=== PATIENT | female | born 1935 | race Caucasian/White ===

== ENCOUNTER 2021-04-04 11:22 | Emergency (ER) | payer MEDICARE, BC ==
[~2021-04-04] VITALS: Ht 15.2 cm; Wt 86.4 kg
[2021-04-04 11:39] LABS: BASO % 0.6 % (0.0-2.0); EOS # 0.5 K/mm3 (0.0-0.7); EOS % 7.2 % (0-4.0); GRAN % 55.9 % (42.2-75.2); HEMATOCRIT 38.6 % (37.0-47.0); HEMOGLOBIN 12.6 g/dl (12.5-16.0); LYMPH # 1.9 K/mm3 (1.2-3.4); LYMPH % 26.4 % (20.0-51.0); MEAN CELL VOLUME 93 fl (80.0-100.0); MEAN CORPUSCULAR HEMOGLOBIN 30 pg (27.0-31.0); MEAN CORPUSCULAR HGB CONC 33 g/dl (33.0-37.0); MEAN PLATELET VOLUME 9.8 fl (7.4-10.4); MONO # 0.7 K/mm3 (0.1-0.6); MONO % 9.3 % (1.7-9.3); PLATELET COUNT 200 K/mm3 (130-400); RED BLOOD COUNT 4.16 M/mm3 (4.10-5.30); REDCELL DISTRIBUTION WIDTH-CV 12.7 % (11.5-14.5)
[2021-04-04 11:45] LABS: INR 1.1 (0.8-3.0)
[2021-04-04 11:47] VITALS: TEMP 98
[2021-04-04 11:47] LABS: PARTIAL THROMBOPLASTIN TIME 26.8 SECONDS (26.0-37.0)
[2021-04-04 12:01] LABS: ALANINE AMINOTRANSFERASE 13 U/L (0-55); ALBUMIN 3.6 gm/dL (3.4-4.8); ALKALINE PHOSPHATASE 61 U/L (0-750); ANION GAP 7 mmol/L (7-16); AST,SGOT 20 U/L (5-34); BILIRUBIN,TOTAL 0.5 mg/dL (0.2-1.2); BLOOD UREA NITROGEN 11 mg/dL (10-20); CALCIUM 9.3 mg/dL (8.4-10.2); CARBON DIOXIDE 21 mmol/L (23-31); CHLORIDE 106 mmol/L (98-107); CREATININE, serum 1.14 mg/dL (0.57-1.11); GLUCOSE 104 mg/dL (70-99); POTASSIUM 4.4 mmol/L (3.5-4.5); SODIUM 134 mmol/L (136-145); TOTAL PROTEIN 6.8 gm/dL (6.2-8.1)
[2021-04-04] MEDS ORDERED: ASPIRIN 81M81 MG/TA2 PO (12:03)
[2021-04-04] MEDS ORDERED: PEPCID 20MG TAB20 MG PO (12:04)
[2021-04-04] MEDS ORDERED: LIPITOR 10MG10 MG PO (12:04)
[2021-04-04] MEDS ORDERED: TRANDATE 100MG100 MG PO ×2 (12:07)
[2021-04-04] MEDS ORDERED: PROTONIX 40MG T40 MG PO (12:08)
[2021-04-04] MEDS ORDERED: COZAAR100 MG PO (12:08)
[2021-04-04 12:32] LABS: TROPONIN-I < 0.010 ng/mL (0.00-0.033)
[2021-04-04 13:46] VITALS: BP 170/89; PULSE 56
== END 2021-04-04 13:57 | disposition home or self-care (01) ==
LOC: COL.ER 11:22
PROVIDERS: Family Medicine
DX: R41.82 Altered mental status, unspecified (principal); Z86.73 Personal history of transient ischemic attack (TIA), and cerebral infarction without residual deficits; Z79.82 Long term (current) use of aspirin

== ENCOUNTER → 2021-04-04 | Emergency (ER) | payer MEDICARE, BC ==
[~2021-04-04] MED LIST: ASPIRIN 81M81 MG/TA2 PO; COZAAR100 MG PO; LIPITOR 10MG10 MG PO; PEPCID 20MG TAB20 MG PO; PROTONIX 40MG T40 MG PO; TRANDATE 100MG100 MG PO
== END ==
LOC: COL.ER 11:14
DX: R69 Illness, unspecified (principal)

== ENCOUNTER 2021-10-16 07:11 | Day surgery (SDC) | payer MEDICARE, BC ==
[~2021-10-16] VITALS: Ht 167.6 cm; Wt 64.5 kg
[2021-10-16] VITALS (11 sets, daily range): BP systolic 111–149; BP diastolic 54–96; PULSE 59–68; TEMP 97.6–98.4
[~2021-10-16 07:11] MED LIST changes: -LIPITOR 10MG10 MG PO; +LIPITOR 40MG TA40 MG PO
[2021-10-16] MEDS ORDERED: DIOVAN 80MG80 MG PO (08:03)
[2021-10-16] MEDS ORDERED: PLAVIX 75MG TAB75 MG PO (08:05)
[2021-10-16 08:06] LABS: BASO # 0.1 K/mm3 (0.0-0.2); BASO % 1.1 % (0.0-2.0); EOS # 0.5 K/mm3 (0.0-0.7); EOS % 6.4 % (0.0-4.0); GRAN # 4.3 K/mm3 (1.4-6.5); GRAN % 59.1 % (42.2-75.2); HEMOGLOBIN 12.4 g/dl (12.5-16.0); LYMPH # 1.7 K/mm3 (1.2-3.4); MEAN CELL VOLUME 88 fl (80.0-100.0); MEAN CORPUSCULAR HEMOGLOBIN 30 pg (27-31); MEAN CORPUSCULAR HGB CONC 34 g/dl (33.0-37.0); MEAN PLATELET VOLUME 9.2 fl (7.4-10.4); MONO # 0.6 K/mm3 (0.1-0.6); MONO % 8.7 % (1.7-9.3); PLATELET COUNT 220 K/mm3 (130-400); RED BLOOD COUNT 4.17 M/mm3 (4.10-5.30); REDCELL DISTRIBUTION WIDTH-CV 13.7 % (11.5-14.5)
[2021-10-16] MEDS ORDERED: DIFLUCAN 100MG100 MG PO (08:06)
[2021-10-16 08:07] LABS: HEMATOCRIT 36.8 % (37.0-47.0)
[2021-10-16] MEDS ORDERED: MYCOSTATIN100000 U/1 TP (08:08)
--- NOTE | 2021-10-16 08:10 | NUR ---
SEE MERGE FOR ALL MEDICATION ADMINISTRATION TIMES/DOSAGES AND INTRA/POST PROCEDURE SEDATION ASSESSMENTS. PRE PROCEDURE ASSESSMENT COMPLETED IN [facility]. SEE MERGE FOR INITIAL/BASELINE ETC02 READING.
[2021-10-16 08:17] LABS: INR 1.1 (0.8-3.0); PROTHROMBIN TIME 11.8 SECONDS (9.7-12.8)
[2021-10-16 08:19] LABS: CALCIUM 9.5 mg/dL (8.4-10.2); CREATININE, serum 0.99 mg/dL (0.57-1.11); POTASSIUM 4.3 mmol/L (3.5-4.5)
--- NOTE | 2021-10-16 11:55 | NUR ---
Pt taken by wheelchair to rm 319 with belongings, daughter accomanies. She is settled into room, call light in reach. Phone report was given to FARIHA Rhoades.
--- NOTE | 2021-10-16 12:20 | NUR ---
PT ADMITTED TO UNIT. ADMISSION INTAKE AND ASSESSMENT COMPLETED. ORIENTED PT TO ROOM, FAMILY AT BEDSIDE. PLACED ON VITALS, VSS. REPORTS MILD PAIN TO L SHOULDER. DRESSING SITES X2 C/D/I. WILL CONTINUE TO MONITOR.
--- NOTE | 2021-10-16 23:41 | NUR ---
ALERT AND OX4 DENIES SOA, CHEST PAIN OR DIZZY. SLING TO LEFT ARM. LOOP RECORDER AND PACEMAKER PROCEDURE TODAY; TOLERATED WELL. ICE PACK TO SITE. TELE-PACED. SCD FOR VTE. MILD TENDERNESS AND BRUSING NOTED AT SITE. REQ MED TO HELP HER SLEEP TONIGHT, GIVEN. CALL LIGHT WI REACH.
[2021-10-17 00:11] VITALS: BP 106/49; PULSE 66; TEMP 97.4
--- NOTE | 2021-10-17 03:41 | NUR ---
PT GIVEN TYL FOR TENDERNESS TO LEFT CHEST/SHOULDER. SLING IN PLACE. NEEDS MET. ANTICPATES DC TODAY.
[2021-10-17 03:58] VITALS: BP 131/63; PULSE 59; TEMP 97.9
[2021-10-17 06:00] LABS: BASO # 0.1 K/mm3 (0.0-0.2); BASO % 0.7 % (0.0-2.0); EOS # 0.5 K/mm3 (0.0-0.7); EOS % 6.7 % (0.0-4.0); GRAN # 4.8 K/mm3 (1.4-6.5); GRAN % 66.2 % (42.2-75.2); HEMOGLOBIN 11.8 g/dl (12.5-16.0); LYMPH # 1.2 K/mm3 (1.2-3.4); LYMPH % 16.9 % (20.0-51.0); MEAN CELL VOLUME 90 fl (80.0-100.0); MEAN CORPUSCULAR HEMOGLOBIN 30 pg (27-31); MEAN CORPUSCULAR HGB CONC 33 g/dl (33.0-37.0); MEAN PLATELET VOLUME 9.7 fl (7.4-10.4); MONO # 0.7 K/mm3 (0.1-0.6); MONO % 9.2 % (1.7-9.3); PLATELET COUNT 182 K/mm3 (130-400); RED BLOOD COUNT 3.94 M/mm3 (4.10-5.30); REDCELL DISTRIBUTION WIDTH-CV 13.9 % (11.5-14.5)
[2021-10-17 06:16] LABS: CALCIUM 8.8 mg/dL (8.4-10.2); CREATININE, serum 0.83 mg/dL (0.57-1.11); POTASSIUM 4.2 mmol/L (3.5-4.5)
[2021-10-17 06:42] LABS: HEMATOCRIT 35.3 % (37.0-47.0)
[2021-10-17 08:03] VITALS: BP 124/79; PULSE 64; TEMP 98.1
--- NOTE | 2021-10-17 08:58 | NUR ---
Assessment completed, alert/oriented, vital signs stable, report incision site tenderness/ ICE and tylenol being used to controll, incision site dressing C/D/I, CXR done and device download completed, heart RRR/ paced on tele HR 70's, eating breakfast, meds given, denies needs, plan for discharge
[2021-10-17] MEDS ORDERED: CEPHALEXIN500 M1 PO (11:27)
[2021-10-17 11:39] VITALS: BP 127/64; PULSE 64; TEMP 98.1
--- NOTE | 2021-10-17 12:15 | NUR ---
Discharge orders discussed with the patient and daughter, instructed to follow up with cardiology as scheduled, discussed activty restriction and incision site cares, instructed to finish course of abx and take meds as prescribed, script for Keflex sent to pharmacy for her, IV and tele removed, leaving with daughter, I will escort them out
== END 2021-10-17 13:48 | disposition home or self-care (01) ==
LOC: COL.CAR 07:11 → MEDICAL 11:33 → COL.CAR 10-17 13:48
PROVIDERS: Internal Medicine Cardiovascular Disease
DX: I49.5 Sick sinus syndrome (principal); I35.0 Nonrheumatic aortic (valve) stenosis; I34.0 Nonrheumatic mitral (valve) insufficiency; I65.23 Occlusion and stenosis of bilateral carotid arteries; I10 Essential (primary) hypertension; I49.3 Ventricular premature depolarization; E78.2 Mixed hyperlipidemia; R55 Syncope and collapse; Z79.899 Other long term (current) drug therapy; Z79.01 Long term (current) use of anticoagulants; Z87.891 Personal history of nicotine dependence
CPT/HCPCS: OP; C1785; C1894; C1898; J0690; J2250; J3010; J7030; Q9967

== ENCOUNTER → 2022-09-09 | Outpatient (CLI) | payer MEDICARE, BC ==
[~2022-09-09] MED LIST changes: +CEPHALEXIN500 M1 PO; +DIFLUCAN 100MG100 MG PO; +DIOVAN 80MG80 MG PO; +MYCOSTATIN100000 U/1 TP; +PLAVIX 75MG TAB75 MG PO
== END ==
LOC: COL.RAD 08-06 09:45
DX: G31.9 Degenerative disease of nervous system, unspecified (principal)
CPT/HCPCS: A9575